=== PATIENT | female | born 1965 | race African-American/Black ===

== ENCOUNTER 2017-10-24 08:34 | Outpatient (CLI) | payer BC ==
--- NOTE | 2017-10-24 11:01 | MRI ---
MRI OF THE LEFT CHEST WALL WITH AND WITHOUT CONTRAST: INDICATION: Supraclavicular mass. TECHNIQUE: Multiplanar, multisequence MR images were obtained of the left chest wall in the region of the left s upraclavicular mass. Fifteen cc of MultiHance was utilized for the examination. FINDINGS: A surface marker was placed in the region of palpable interest in the left supraclavicular region. T here is a fat signal-intensity mass lesion without appreciable abnormal enhancement seen on the T2 ax ial fat-sat images most consistent with a supraclavicular subcutaneous lipoma. The lesion measures 3 .1 x 4.5 x 2.4 cm. There is some unequal fat-sat seen on the postcontrast images within portions of the left neck base and left shoulder region. No definite abnormal enhancement is seen along the nhung on of the brachial plexus. No pathologically enlarged lymph nodes are evident. No bone marrow signa l abnormality is grossly evident. 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 IMPRESSION: The left supraclavicular palpable mass corresponds to a simple-appearing lipoma. POS: [facility]
[2017-10-24] MEDS ORDERED: Gadobenate Dimeglumine 529 MG/1 ML (20ML VIAL) ONE (12:59)
== END 2017-10-24 08:35 | disposition home or self-care (01) ==
LOC: MRI 08:34
PROVIDERS: ATTEND Neurological Surgery
DX: D17.79 Benign lipomatous neoplasm of other sites (principal); M12.9 Arthropathy, unspecified; R22.2 Localized swelling, mass and lump, trunk
CPT/HCPCS: 71552; A9579

== ENCOUNTER 2018-01-19 15:17 | Outpatient (CLI) | payer BC ==
[2018-01-19 16:25] LABS: #Basophils 0.1 thou/uL (0.0-0.2); #Eosinphils 0.5 thou/uL (0.0-0.7); #Lymphocytes 2.2 thou/uL (1.20-3.40); #Monocytes 0.4 thou/uL (0.11-0.59); #Neutrophils 3.3 thou/uL (1.40-6.50); %Basophils 1.4 % (0.0-1.0); %Eosinophils 7.3 % (0.0-10.0); %Lymphocytes 34.4 % (21.0-51.0); %Monocytes 6.4 % (0.0-10.0); %Neutrophils 50.6 % (42.0-75.0); Bilirubin Negative (Negative); Blood, Urine Negative (Negative); Clarity CLEAR (Clear); Glucose, Urine (Dipstick) Negative (Negative); Hemoglobin 12.4 g/dL (12.0-16.0); Leukocyte Negative (Negative); Mean Corpuscular HGB CONC 32.9 g/dL (32.0-36.0); Mean Corpuscular Hemoglobin 31.3 pg (27.0-31.0); Mean Corpuscular Volume 95.3 fL (78.0-98.0); Mean Platelet Volume 8.1 fL (7.4-10.4); Nitrite Negative (Negative); Platelet Count 305 thou/uL (130-400); Protein, Urine (Dipstick) Negative (Neg-Trace); RBC Distribution Width 12.8 % (11.5-14.5); Red Blood Cell (RBC) Count 3.94 mill/uL (4.20-5.40); Specific Gravity, Urine 1.018 (1.002-1.036); White Blood Cell (WBC) Count 6.4 thou/uL (4.8-10.8); pH, Urine 6.5 (5.0-9.0)
[2018-01-19 16:26] LABS: Bacteria/HPF None Seen HPF (None Seen); Hyaline Casts/LPF 0-3 HYALINE CAST LPF (0-3 Hyaline); Pathc Cast-AUWi Flag 0.58 (0-2.49); Squamous Epithelial 0-3 HPF (0-3); WBC/HPF 0-3 HPF (0-3)
[2018-01-19 16:30] LABS: PTT 26.1 SEC (22.9-36.1); Prothrombin Time 13.6 SEC (12.0-14.7)
[2018-01-19 16:43] LABS: Anion Gap 13 mmol/L (10-20); BUN (Urea Nitrogen) 14 mg/dL (9.8-20.1); Calc. Creatinine Clearance 0 mL/min (70-130); Calcium 9.4 mg/dL (7.8-10.44); Carbon Dioxide 25 mmol/L (22-29); Chloride 105 mmol/L (98-107); Estimated GFR-MDRD 72; Glucose 76 mg/dL (70-105); Potassium 3.1 mmol/L (3.5-5.1); Sodium 140 mmol/L (136-145)
--- NOTE | 2018-01-19 16:57 | RAD ---
TWO VIEW CHEST: 01/19/18 COMPARISON: 07/08/12 CLINICAL INDICATION: Preoperative assessment. FINDINGS: The lungs are clear. No consolidation or effusion. The cardiac silhouette is within normal size. IMPRESSION: No focal consolidation. POS: [facility]
--- NOTE | 2018-01-22 17:45 | EKG ---
Test Reason : Blood Pressure : / mmHG Vent. Rate : 065 BPM Atrial Rate : 065 BPM P-R Int : 140 ms QRS Dur : 084 ms QT Int : 384 ms P-R-T Axes : 071 064 044 degrees QTc Int : 399 ms Normal sinus rhythm Right atrial enlargement Moderate voltage criteria for LVH, may be normal variant Borderline ECG Confirmed by ELIU CLIFFORD (2) on 01/22/2018 5:45:07 PM Referred By: KENDALL Confirmed By:ELIU CLIFFORD
== END 2018-01-19 15:18 | disposition home or self-care (01) ==
LOC: LABBT 15:17
PROVIDERS: ATTEND Orthopaedic Surgery Hand Surgery
DX: Z01.818 Encounter for other preprocedural examination (principal); M65.4 Radial styloid tenosynovitis [de Quervain]
CPT/HCPCS: 71046; 80048; 81001; 85025; 85610; 85730; 93005; 93010

== ENCOUNTER 2018-01-24 07:23 | Day surgery (SDC) | payer BC ==
[2018-01-19 15:28] VITALS: BMI 23.8
[2018-01-24] MEDS ORDERED: Betamet Acet/Betamet Na Ph 30 MG/5 ML VIAL ONE (09:35)
[2018-01-24] MEDS ORDERED: Sodium Chloride 0.9% 10 ML ONE (09:35)
[2018-01-24] MEDS ORDERED: Bacitracin Zinc Ointment 30 gm TUBE ONE (09:35)
[2018-01-24] MEDS ORDERED: Bupivacaine PF 0.5% 30 ML VIAL ONE (09:35)
[2018-01-24] MEDS ORDERED: Fentanyl 100 MCG/2 ML VIAL ONE (09:40)
[2018-01-24] MEDS ORDERED: CEFAZOLIN/Water 2 GM/20 ML SYRINGE ONE (09:50)
--- NOTE | 2018-01-24 11:50 | OP ---
DATE OF PROCEDURE: 01/24/2018 SURGEON: Dr. Paresh Mayberry PREOPERATIVE DIAGNOSES: 1. First dorsal compartment tenosynovitis. 2. First dorsal compartment vaginitis extensive with the following findings; 1) 5 mm thick valles ove r the first dorsal compartment with marked compression. 2) Separate extensor pollicis brevis and ab ductor pollicis longus compartments; 3) three sleeves of the abductor pollicis longus separate from e ach other, all with synovitis. POSTOPERATIVE DIAGNOSES: 1. First dorsal compartment tenosynovitis. 2. First dorsal compartment vaginitis extensive with the following findings; 1) 5 mm thick valles ove r the first dorsal compartment with marked compression. 2) Separate extensor pollicis brevis and ab ductor pollicis longus compartments; 3) three sleeves of the abductor pollicis longus separate from e ach other, all with synovitis. PROCEDURE PERFORMED: 1. Radical extensor tenosynovitis abductor pollicis longus. 2. Radical extensor tenosynovectomy abductor pollicis longus. 3. Radical extensor pollicis brevis tenosynovectomy extensor, right wrist first dorsal compartment r elease. 4. Celestone injection 5 mL drip technique into the compartment. SPECIMENS SENT: Tenosynovium from the abductor pollicis longus. ESTIMATED BLOOD LOSS: 5 mL. TOURNIQUET TIME: 8 minutes. INDICATIONS: The patient with refractory tenosynovitis, first dorsal compartment de Quervain's on ph ysical exam and history, did not respond completely to injection, bracing, therapy and medication. DESCRIPTION OF PROCEDURE: After successful general via LMA technique by Romina SEGAL, from [facility], the patient had the limb prepped and draped. Timeout done appropriately and the patient h ad the limb exsanguinated with the tourniquet inflated to 225 mmHg pressure. We then made a zigzag incision centered over the styloid the radius carried through skin and subcutan eous tissue. Immediately identified superficial radial nerve branches, gently dissected them free an d allowed them to be protected. We then visualized first dorsal compartment. It was so thick it was hard to tell the tendon versus a compartment edge, so we made an incision in the center and found th at the actual extensor valles for first dorsal compartment was 5 mm thick in its central portion. Then , we freed the abductor pollicis longus tendon. We could then see the extensor pollicis brevis in se parate compartment, so we had to release this as well. This compartment sheath was not as thick. Th e abductor pollicis longus were now free as was the extensor pollicis brevis and we inspected all asha und found abnormality. From the extensor valles proximally there was marked abductor pollicis longus, extensor pollicis brevis tenosynovitis or radical extensor tenosynovectomy of these tendons was accom plished. Specimen sample was sent to the lab for evaluation. We then resected 1-1/2 mm of the exten sor valles, so it would not regrow easily, but portion volar was adequate not to prevent subluxation of the abductor and extensor tendon. Tourniquet was deflated. We obtained hemostasis and put 5 mL of Celestone via drip technique on the two tendons, and closed the wound with simple 4-0 nylon in an interrupted pattern. We finished the i njection, gave a total of 10 mL 0.5% Marcaine, 5 before the procedure and 5 after. A splint was appl ied. Thumb spica. The patient left the operating room without evidence of anesthetic or operative c omplication.
[2018-01-24] MEDS ORDERED: HYDROcodone/Acetaminophen 5/325 mg Tablet ONE ×2 (11:56)
[2018-01-24] MEDS ORDERED: PHENYLEPHRINE-NS 100 MCG/ML 10 ML SYRINGE ONE (13:48)
[2018-01-24] MEDS ORDERED: Lidocaine 1% PF 5 ML VIAL ONE (13:48)
[2018-01-24] MEDS ORDERED: Ondansetron HCl/PF 4 MG/2 ML Vial ONE (13:48)
[2018-01-24] MEDS ORDERED: PROPOFOL 200 MG/20 ML VIAL ONE (13:48)
[2018-01-24] MEDS ORDERED: Dexamethasone 20 MG/5 ML VIAL ONE (13:48)
[2018-01-24] MEDS ORDERED: ePHEDrine/0.9% NaCl/PF SYRINGE 50 mg/10 ml ONE (13:48)
== END 2018-01-24 12:55 | disposition home or self-care (01) ==
LOC: SDC 07:23
PROVIDERS: ATTEND Orthopaedic Surgery Hand Surgery
PROC: 0LB60ZZ Excision of Left Lower Arm and Wrist Tendon, Open Approach (ICD-10-PCS; principal; 2018-01-24)
DX: M65.4 Radial styloid tenosynovitis [de Quervain] (principal); J45.909 Unspecified asthma, uncomplicated; F41.9 Anxiety disorder, unspecified; F17.210 Nicotine dependence, cigarettes, uncomplicated; Z79.899 Other long term (current) drug therapy
CPT/HCPCS: 88305; A4216; J0702; J1100; J2001; J2405; J2704; J3010; J3490; S0020

== ENCOUNTER 2018-02-27 15:01 | Outpatient (CLI) | payer BC ==
[2018-02-27 16:17] LABS: Hemoglobin 12.1 g/dL (12.0-16.0); Mean Corpuscular HGB CONC 32.4 g/dL (32.0-36.0); Mean Corpuscular Hemoglobin 31.2 pg (27.0-31.0); Mean Corpuscular Volume 96.3 fL (78.0-98.0); Mean Platelet Volume 7.4 fL (7.4-10.4); Platelet Count 337 thou/uL (130-400); RBC Distribution Width 12.5 % (11.5-14.5); Red Blood Cell (RBC) Count 3.87 mill/uL (4.20-5.40); White Blood Cell (WBC) Count 7.5 thou/uL (4.8-10.8)
[2018-02-27 16:35] LABS: Anion Gap 10 mmol/L (10-20); BUN (Urea Nitrogen) 25 mg/dL (9.8-20.1); Calc. Creatinine Clearance 0 mL/min (70-130); Carbon Dioxide 26 mmol/L (22-29); Chloride 106 mmol/L (98-107); Estimated GFR-MDRD 45; Glucose 109 mg/dL (70-105); Sodium 139 mmol/L (136-145)
== END 2018-02-27 15:02 | disposition home or self-care (01) ==
LOC: LABBT 15:01
PROVIDERS: ATTEND Orthopaedic Surgery
DX: Z01.812 Encounter for preprocedural laboratory examination (principal); M75.102 Unspecified rotator cuff tear or rupture of left shoulder, not specified as traumatic
CPT/HCPCS: 80048; 85027

== ENCOUNTER 2018-03-02 06:02 | Day surgery (SDC) | payer BC ==
[2018-02-27 15:44] VITALS: BMI 23.1
[2018-03-02] MEDS ORDERED: Fentanyl 100 MCG/2 ML VIAL ONE ×2 (06:40→09:37)
[2018-03-02] MEDS ORDERED: Midazolam HCl 2 mg/2 ml Vial ONE (06:40)
[2018-03-02] MEDS ORDERED: CEFAZOLIN 2 GM/50 ML BAG ONE (06:51)
[2018-03-02] MEDS ORDERED: Bupivacaine/Epinephrine 0.25% 30 ML VIAL ONE (06:52)
[2018-03-02] MEDS ORDERED: Promethazine HCl 25 MG/ML VIAL IM PRN (08:14)
[2018-03-02] MEDS ORDERED: Zolpidem Tartrate 5 MG TAB PO PRN (08:14)
[2018-03-02] MEDS ORDERED: traMADol HCl 50 MG TAB PO PRN ×2 (08:14)
[2018-03-02] MEDS ORDERED: Ropivacaine 0.2% 550 ML 550 ML NERVE BLCK SCH (08:14)
[2018-03-02] MEDS ORDERED: HYDROcodone/Acetaminophen 10/325 mg Tablet PO PRN ×2 (08:14)
[2018-03-02] MEDS ORDERED: Ketorolac Tromethamine 30 MG/ML VIAL IVP PRN (08:14)
[2018-03-02] MEDS ORDERED: Ondansetron PF 4 MG/2 ML Vial IVP PRN (08:14)
[2018-03-02] MEDS ORDERED: Fentanyl 100 MCG/2 ML VIAL IV PRN (08:15)
--- NOTE | 2018-03-02 10:15 | OP ---
DATE OF PROCEDURE: 03/02/2018 PREOPERATIVE DIAGNOSES: Left full thickness supraspinatus infraspinatus tear, complex stenosis. POSTOPERATIVE DIAGNOSIS: Left full-thickness supraspinatus infraspinatus tear, complex stenosis. PROCEDURE PERFORMED: Left double row transosseous equivalent rotator cuff repair. STAFF: Travis Hansen M.D. ANESTHESIA: Debbi. The patient received a general base interscalene block. ESTIMATED BLOOD LOSS: 30 mL. TOURNIQUET TIME: None. IMPLANTS: Three 4.75 SwiveLocks and two 5.5 corkscrews. ANTIBIOTICS: Ancef 2 grams. COMPLICATIONS: None. HISTORY OF PRESENT ILLNESS: Ms. Flanagan is a 53-year-old female who presented to me with left shoul nisa pain which she is right hand dominant. 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 She has had pain f or many years, for quite some time. She has recently undergone surgery by Dr. Mayberry for her wrist . I discussed with the patient that she had a full thickness rotator cuff tear. I discussed the ris ks and benefits of arthroscopic repair to include pain, scar, bleeding, infection, damage to vital st ructures, decreased range of motion or strength, failure of repair to heal. The patient understood t hese risks and benefits. I discussed with her that she had a slightly elevated creatinine. Given h er history of 1 kidney that she should not be taking any anti-inflammatories. The patient understand s the risks and benefits of the procedure and she elected to proceed. PROCEDURE IN DETAIL: Time out was performed designating the patient's left upper extremity as the op erative site based on sight, consents, marking. After completion of timeout, the patient's left uppe r extremity was prepped and draped in sterile fashion, placed in a beach chair position with bony poi nts well padded. We made a posterior working portal and anterior working portal into the joint, look ed around at the joint, saw the full thickness rotator cuff tear, there were no defects of the glenoi d humerus. The subscap was in place, the biceps had some tendinopathy, but no high-grade tearing. S he has degenerative SLAP. I left her rotator cuff in place. I moved subacromially, debrided off the bursa, took down the CA ligament, exposed the acromion taking a cheryl to take down 5 mm of the bone t o expose the greater tuberosity. I then placed 2 anchors on the articular margin 5.5 corkscrews. I then passed those 8 stitches through the rotator cuff. I then placed 2 lateral rows laterally to ten kellie down. There was still a dog ear which I did not like, therefore I put one more 4.75 SwiveLock, used those 2 sutures to tie the dog ear down and tied them to itself, like the equivalent of the silverio sosseous double row. I then cut the knots, took final pictures, washed and closed with 3-0 nylon. The patient will be placed in a sling. She will follow up with me in 2 weeks. Begin elbow, wrist, a nd hand motion, no shoulder range of motion.
[2018-03-02] MEDS ORDERED: Ropivacaine 0.2% HCl/PF (40 MG/20 ML VIAL) ONE (11:37)
[2018-03-02] MEDS ORDERED: ePHEDrine/0.9% NaCl/PF SYRINGE 50 mg/10 ml ONE (11:39)
[2018-03-02] MEDS ORDERED: Glycopyrrolate 0.2 MG/ML 5 ML SYRINGE ONE (11:39)
[2018-03-02] MEDS ORDERED: PROPOFOL 200 MG/20 ML VIAL ONE (11:39)
[2018-03-02] MEDS ORDERED: Lidocaine 1% PF 5 ML VIAL ONE (11:39)
[2018-03-02] MEDS ORDERED: Ondansetron PF 4 MG/2 ML Vial ONE (11:39)
[2018-03-02] MEDS ORDERED: Dexamethasone 20 MG/5 ML VIAL ONE (11:39)
== END 2018-03-02 12:00 | disposition home or self-care (01) ==
LOC: SDC 06:02
PROVIDERS: ATTEND Orthopaedic Surgery
PROC: 0RNK4ZZ Release Left Shoulder Joint, Percutaneous Endoscopic Approach (ICD-10-PCS; principal; 2018-03-02)
PROC: 0LM24ZZ Reattachment of Left Shoulder Tendon, Percutaneous Endoscopic Approach (ICD-10-PCS; principal; 2018-03-02)
DX: M75.122 Complete rotator cuff tear or rupture of left shoulder, not specified as traumatic (principal); S43.432A Superior glenoid labrum lesion of left shoulder, initial encounter; M75.22 Bicipital tendinitis, left shoulder; J45.909 Unspecified asthma, uncomplicated; F41.9 Anxiety disorder, unspecified; F17.200 Nicotine dependence, unspecified, uncomplicated; Z79.899 Other long term (current) drug therapy; Z90.5 Acquired absence of kidney
CPT/HCPCS: 96374; A4306; C1713; J1100; J2001; J2250; J2405; J2704; J2795; J3010

== ENCOUNTER 2018-03-04 11:47 | Emergency (ER) | payer BC ==
[2018-03-04] MEDS ORDERED: Morphine 4 MG/ML VIAL ONE (13:17)
== END 2018-03-04 14:23 | disposition home or self-care (01) ==
LOC: ERS 11:47
DX: G89.18 Other acute postprocedural pain (principal); J45.909 Unspecified asthma, uncomplicated; I10 Essential (primary) hypertension; Z87.891 Personal history of nicotine dependence; Z79.899 Other long term (current) drug therapy
CPT/HCPCS: 96372; J2270